=== PATIENT | female | born 1980 | race African-American/Black ===

== ENCOUNTER 2019-07-26 18:05 | Emergency (ER) | payer BC ==
[~2019-07-26] VITALS: Ht 167.6 cm; Wt 86.8 kg
[~2019-07-26 18:05] MED LIST: ADVAIR 100/28 DISKUS IH; ALBUTEROL0.09 MG/A4 IH; DECADRON4 MG PO; NO HOME MEDICATIONS
== END 2019-07-26 22:13 | disposition left against medical advice (07) ==
LOC: COL.ER 18:05
DX: M79.89 Other specified soft tissue disorders (principal)

== ENCOUNTER 2019-11-27 13:33 | Emergency (ER) | payer OTHER ==
[~2019-11-27] VITALS: Ht 167.6 cm; Wt 86.4 kg
[2019-11-27 13:49] VITALS: TEMP 97.9
[2019-11-27] MEDS ORDERED: PREDNISONE20 MG PO (14:52)
[2019-11-27 17:20] VITALS: BP 139/71; PULSE 99
== END 2019-11-27 17:20 | disposition home or self-care (01) ==
LOC: COL.ER 13:33
DX: J45.901 Unspecified asthma with (acute) exacerbation (principal); Z79.51 Long term (current) use of inhaled steroids
CPT/HCPCS: J7512